=== PATIENT | female | born 1945 | race Caucasian/White ===

== ENCOUNTER 2018-09-17 06:55 | Day surgery (SDC) | payer MEDICARE ==
[~2018-09-17] VITALS: Ht 160 cm; Wt 103.8 kg
[2018-09-17 07:32] VITALS: BP 172/76
[2018-09-17] MEDS ORDERED: LIDOCAINE-MPF 1%, 5ML ONE (07:35)
[2018-09-17] MEDS ORDERED: LIDOCAINE 1%, 20ML ONE (07:54)
[2018-09-17 08:20] LABS: BASOPHILS # (AUTO) 0.11 x10^3/uL (0-0.1); BASOPHILS % (AUTO) 1 % (0-1); EOSINOPHILS # (AUTO) 0.17 x10^3/uL (0-0.4); EOSINOPHILS % (AUTO) 2 % (1-7); LYMPHOCYTES # (AUTO) 2.37 x10^3/uL (1-3.4); LYMPHOCYTES % (AUTO) 29 % (22-44); MD NO; MEAN CORPUSCULAR HEMOGLOBIN 29.1 pg (27.0-34.8); MEAN CORPUSCULAR HGB CONC 31.6 g/dL (32.4-35.8); MEAN CORPUSCULAR VOLUME 92.2 fL (80-100); MEAN PLATELET VOLUME 7.9 fL (7.4-10.4); MONOCYTES # (AUTO) 0.78 x10^3/uL (0.2-0.8); MONOCYTES % (AUTO) 10 % (2-9); NEUTROPHILS # (AUTO) 4.64 x10^3/uL (1.8-6.8); NEUTROPHILS % (AUTO) 57 % (42-75); PLATELET COUNT 204 x10^3/uL (130-400); RED BLOOD COUNT 5.06 x10^6/uL (3.82-5.3); RED CELL DISTRIBUTION WIDTH 13.6 % (9.6-15.2)
[2018-09-17 08:30] LABS: ALANINE AMINOTRANSFERASE 24 U/L (12-78); ALBUMIN 3.5 g/dL (3.4-5.0); ANION GAP 7 mmol/L (5-15); CALCIUM 9.3 mg/dL (8.5-10.1); CHLORIDE 104 mmol/L (98-107); CREATININE 1.21 mg/dL (0.55-1.02)
[2018-09-17 08:32] LABS: ALKALINE PHOSPHATASE 105 U/L (45-117); BILIRUBIN,TOTAL 0.5 mg/dL (0.2-1.0); TOTAL PROTEIN 7.1 g/dL (6.4-8.2)
[2018-09-17] MEDS ORDERED: FLUMAZENIL 0.1 MG/1 ML, 5ML ONE (08:34)
[2018-09-17] MEDS ORDERED: PROTAMINE SULFATE 10 MG/ML, 25ML ONE (08:34)
[2018-09-17] MEDS ORDERED: MIDAZOLAM 1 MG/ML, 5ML ONE (08:34)
[2018-09-17] MEDS ORDERED: NITROGLYCERIN 5 MG/ML, 10ML ONE (08:34)
[2018-09-17] MEDS ORDERED: HEPARIN 1,000 UNITS/ML, 10ML ONE (08:34)
[2018-09-17] MEDS ORDERED: FENTANYL PF 100 MCG/2ML ONE (08:34)
[2018-09-17] MEDS ORDERED: NALOXONE 1 MG/ML, 2ML ONE (08:34)
[2018-09-17] MEDS ORDERED: VISIPAQUE 270 MG/ML, 150ML BOTTLE ONE (10:00)
[2018-09-17] MEDS ORDERED: HYDROcodone/APAP 5/325 TABLET ONE (13:19)
[2018-09-17] MEDS ORDERED: HYDROcodone/APAP 5/325 TABLET PO PRN (13:30)
== END 2018-09-17 16:20 | disposition home or self-care (01) ==
LOC: OUT 06:55
PROVIDERS: ATTEND Surgery
DX: I70.223 Atherosclerosis of native arteries of extremities with rest pain, bilateral legs (principal); I70.213 Atherosclerosis of native arteries of extremities with intermittent claudication, bilateral legs; I74.5 Embolism and thrombosis of iliac artery; I10 Essential (primary) hypertension; F41.9 Anxiety disorder, unspecified; G89.4 Chronic pain syndrome; E66.01 Morbid (severe) obesity due to excess calories; Z68.38 Body mass index [BMI] 38.0-38.9, adult; Z79.899 Other long term (current) drug therapy; Z88.8 Allergy status to other drugs, medicaments and biological substances; Z98.890 Other specified postprocedural states; Z82.49 Family history of ischemic heart disease and other diseases of the circulatory system
CPT/HCPCS: 36415; 37221; 37252; 37253; 75625; 75716; 80053; 85025; 99156; 99157; C1753; C1760; C1769; C1874; C1894; J1644; J2250; J2720; J3010; Q9966; 75630; J2310